=== PATIENT | male | born 1965 | race Caucasian/White ===

== ENCOUNTER 2018-04-05 10:29 | Emergency (ER) | payer BC, OTHER ==
[2018-04-05 10:43] VITALS: BMI 29.2
[2018-04-05 10:49] VITALS: BP 129/94; PULSE 103; TEMP 98.6
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
[2018-04-05] MEDS ORDERED: NAPROXEN 500 MG TABLET (FP) PO ONE (11:12)
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
[2018-04-05] MEDS ORDERED: NAPROXEN 500 MG TABLET (FP) ONE (11:25)
[2018-04-05] MEDS ORDERED: ACETAMINOPHEN 325 MG TABLET (FP) PO ONE (11:43)
[2018-04-05] MEDS ORDERED: ACETAMINOPHEN 325 MG TABLET (FP) ONE (11:48)
== END 2018-04-05 12:20 | disposition home or self-care (01) ==
LOC: FER 10:29
DX: M25.531 Pain in right wrist (principal)
CPT/HCPCS: 99282-25

== ENCOUNTER 2022-10-20 06:23 | Emergency (ER) | payer BC, OTHER ==
[2022-10-20 06:28] VITALS: BP 158/98; PULSE 88; RESP 16; TEMP 98; BMI 30.4
[2022-10-20] MEDS ORDERED: SULFAMETHOXAZOLE/TRIMETHOPRIM 800MG/160MG D.S. TABLET PO ONE (08:33)
[2022-10-20] MEDS ORDERED: SULFAMETHOXAZOLE/TRIMETHOPRIM 800MG/160MG D.S. TABLET ONE (08:38)
== END 2022-10-20 08:43 | disposition home or self-care (01) ==
LOC: FER 06:23
DX: R22.41 Localized swelling, mass and lump, right lower limb (principal); L03.115 Cellulitis of right lower limb
CPT/HCPCS: 93971-TC; 99284-25

== ENCOUNTER 2024-01-28 04:28 | Day surgery (SDC) | payer BC, OTHER ==
[2024-01-26 09:50] VITALS: BMI 31.0
[2024-01-28] MEDS ORDERED: LIDOCAINE HCL/PF 1% SDV 5ML VIAL ONE ×2 (07:48→15:43)
[2024-01-28] MEDS ORDERED: DEXAMETHASONE SOD PHOSPHATE 10 MG/1 ML VIAL ONE ×2 (07:49→15:43)
[2024-01-28] MEDS ORDERED: ACETAMINOPHEN 500 MG TABLET (FP) PO PRN (13:25)
[2024-01-28 13:51] VITALS: RESP 18
[2024-01-28] MEDS: LIDOCAINE HCL 1% PRESERVATIVE FREE - 30ML VIAL IJ ONE ×2 (16:14)
[2024-01-28] MEDS: IOHEXOL 180 MG/1 ML ML IJ ONE ×2 (16:20)
[2024-01-28] MEDS: DEXAMETHASONE SOD PHOSPHATE 10 MG/1 ML VIAL IM ONE ×2 (16:22)
[2024-01-28 17:15] VITALS: BP 144/91; PULSE 81; TEMP 97.7
== END 2024-01-28 17:00 | disposition home or self-care (01) ==
LOC: JASU-SURG 04:28
PROVIDERS: ATTEND Pain Medicine Pain Medicine
PROC: 3E0R3BZ Introduction of Anesthetic Agent into Spinal Canal, Percutaneous Approach (ICD-10-PCS; 2024-01-28)
PROC: 3E0R33Z Introduction of Anti-inflammatory into Spinal Canal, Percutaneous Approach (ICD-10-PCS; principal; 2024-01-28 15:30)
DX: M54.16 Radiculopathy, lumbar region (principal)
CPT/HCPCS: J1100